=== PATIENT | female | born 1940 | race Caucasian/White ===

== ENCOUNTER 2020-05-09 06:47 | Emergency (ER) | payer MEDICARE, OTHER ==
[~2020-05-09] VITALS: Ht 157.5 cm; Wt 43.0 kg
--- NOTE | 2020-05-09 07:07 | NUR ---
PATIENT WHEELED BACK FROM TRIAGE WITH C/O DIZZINESS. PATIENT STATES HER BP WAS HIGH LAST NIGHT AND THE ROOM WAS SPINNING. PATIENT STATES THAT WHEN SHE MOVES HER HEAD SHE FEELS LIKE SHE IS GOING TO PASS OUT, ALSO C/O FEELING NAUSEATED BUT DENIES VOMITTING. PATIENT DENIES CHEST PAIN, HENDERSON, OR SOB. ERMD AT BEDSIDE FOR EVALUATION. PATIENT CONNECTED TO VITAL SIGN MACHINE. CURRENT BP IS 172/90 MANUALLY.
[2020-05-09] MEDS ORDERED: LOSA50TA14 PO (07:24)
[2020-05-09] MEDS ORDERED: ATEN25TA PO (07:24)
[2020-05-09] MEDS ORDERED: MECLIZINE CHEWABLE 25 MG TAB PO ONE (07:30)
[2020-05-09] MEDS ORDERED: ONDANSETRON ODT 4 MG PO ONE (07:30)
[2020-05-09] MEDS ORDERED: ONDANSETRON ODT 4 MG ONE (07:31)
[2020-05-09] MEDS ORDERED: MECLIZINE CHEWABLE 25 MG TAB ONE (07:32)
--- NOTE | 2020-05-09 07:38 | NUR ---
PT TO CT
[2020-05-09 07:43] LABS: MEAN CORPUSCULAR HEMOGLOBIN 23.4 pg (27.0-34.8); MEAN CORPUSCULAR HGB CONC 30.2 g/dL (32.4-35.8); MEAN PLATELET VOLUME 7.1 fL (7.4-10.4); PLATELET COUNT 198 x10^3/uL (130-400); RED BLOOD COUNT 4.67 x10^6/uL (3.82-5.3); RED CELL DISTRIBUTION WIDTH 13.7 % (9.6-15.2)
[2020-05-09 07:52] LABS: BASOPHILS # (AUTO) 0.01 x10^3/uL (0-0.1); BASOPHILS % (AUTO) 0 % (0-1); EOSINOPHILS # (AUTO) 0.01 x10^3/uL (0-0.4); EOSINOPHILS % (AUTO) 0 % (1-7); LYMPHOCYTES # (AUTO) 0.64 x10^3/uL (1-3.4); LYMPHOCYTES % (AUTO) 10 % (22-44); MD SCAN; MONOCYTES % (AUTO) 1 % (2-9); NEUTROPHILS # (AUTO) 6.01 x10^3/uL (1.8-6.8); NEUTROPHILS % (AUTO) 89 % (42-75)
[2020-05-09 07:54] LABS: ALBUMIN 3.7 g/dL (3.4-5.0); ANION GAP 10 mmol/L (5-15); CALCIUM 8.6 mg/dL (8.5-10.1); CHLORIDE 99 mmol/L (98-107); CREATININE 0.78 mg/dL (0.55-1.02)
[2020-05-09 08:01] VITALS: BP 171/79
--- NOTE | 2020-05-09 08:01 | NUR ---
MEDICATED ORDERED. RESTING IN BED, CALL LIGHT IN REACH.
== END 2020-05-09 08:59 | disposition home or self-care (01) ==
LOC: EDBD 06:47 → ED 08:10
DX: I10 Essential (primary) hypertension (principal); R42 Dizziness and giddiness; G89.29 Other chronic pain
CPT/HCPCS: 36415; 70450; 80048; 82040; 85025; 93005; 99285; Q0162